=== PATIENT | male | born 1995 | race African-American/Black ===

== ENCOUNTER 2022-05-24 13:22 | Emergency (ER) | payer OTHER ==
[~2022-05-24] VITALS: Ht 165.1 cm; Wt 86.2 kg
[2022-05-24 13:31] VITALS: BP 138/75
== END 2022-05-24 13:37 ==
LOC: ER 13:29
DX: Z02.89 Encounter for other administrative examinations (principal); Y08.89XA Assault by other specified means, initial encounter; Y93.89 Activity, other specified; Y92.89 Other specified places as the place of occurrence of the external cause; Y99.8 Other external cause status